=== PATIENT | male | born 2000 | race Caucasian/White ===

== ENCOUNTER 2022-02-17 20:52 | Emergency (ER) | payer OTHER, MEDICAID, SELFPAY ==
[2022-02-17 21:33] VITALS: BP 122/67; PULSE 68; RESP 21; TEMP 36.7; O2SAT 100; BMI 28.0
[2022-02-17] MEDS: Ibuprofen 600 MG TABLET PO (21:38)
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
[2022-02-17] MEDS: Ketorolac Tromethamine 60 MG/2 ML VIAL IM (23:23)
[2022-02-17] MEDS: oxyCODONE HCl Immed Release 5 MG TABLET 10 MG PO (23:23)
[2022-02-17] MEDS: Diphth,Pertus(ACell),Tet Adult 0.5 ML SYRINGE IM (23:24)
[2022-02-18 00:01] VITALS: BP 122/74; PULSE 70; RESP 17; TEMP 36.9; O2SAT 100
== END 2022-02-18 00:05 | disposition home or self-care (01) ==
PROVIDERS: Emergency Provider Internal Medicine
DX: T22.191A Burn of first degree of multiple sites of right shoulder and upper limb, except wrist and hand, initial encounter (principal); M79.621 Pain in right upper arm; X10.2XXA Contact with fats and cooking oils, initial encounter; T31.0 Burns involving less than 10% of body surface; Y93.G3 Activity, cooking and baking; Y92.000 Kitchen of unspecified non-institutional (private) residence as the place of occurrence of the external cause; Y99.9 Unspecified external cause status
CPT/HCPCS: 90471; 90715; 96372; 99283; 99284; J1885